=== PATIENT | male | born 1965 | race Caucasian/White ===

== ENCOUNTER 2017-12-09 13:39 | Emergency (ER) | payer SELFPAY ==
[~2017-12-09] VITALS: Ht 182.9 cm; Wt 69.3 kg
[2017-12-09 13:40] VITALS: BP 134/86
[2017-12-09 14:34] LABS: BASOPHILS # (AUTO) 0.05 x10^3/uL (0-0.1); BASOPHILS % (AUTO) 1 % (0-1); EOSINOPHILS # (AUTO) 0.05 x10^3/uL (0-0.4); EOSINOPHILS % (AUTO) 1 % (1-7); LYMPHOCYTES # (AUTO) 1.83 x10^3/uL (1-3.4); LYMPHOCYTES % (AUTO) 19 % (22-44); MD NO; MEAN CORPUSCULAR HEMOGLOBIN 34.2 pg (27.5-34.5); MEAN CORPUSCULAR VOLUME 100.7 fL (81-97); MEAN PLATELET VOLUME 8.1 fL (7.4-10.4); MONOCYTES # (AUTO) 0.69 x10^3/uL (0.2-0.8); MONOCYTES % (AUTO) 7 % (2-9); NEUTROPHILS # (AUTO) 7.04 x10^3/uL (1.8-6.8); NEUTROPHILS % (AUTO) 73 % (42-75); PLATELET COUNT 303 x10^3/uL (130-400); RED BLOOD COUNT 4.72 x10^6/uL (4.38-5.82); RED CELL DISTRIBUTION WIDTH 14.4 % (9.4-14.8)
[2017-12-09 14:43] LABS: ALANINE AMINOTRANSFERASE 25 U/L (12-78); ALBUMIN 3.8 g/dL (3.4-5.0); ANION GAP 4 mmol/L (5-15); CALCIUM 8.7 mg/dL (8.5-10.1); CHLORIDE 111 mmol/L (98-107); CREATININE 0.82 mg/dL (0.7-1.3)
[2017-12-09 14:45] LABS: ALKALINE PHOSPHATASE 73 U/L (45-117); BILIRUBIN,TOTAL 0.3 mg/dL (0.2-1.0)
== END 2017-12-09 15:16 | disposition home or self-care (01) ==
LOC: ED 14:39
DX: K40.91 Unilateral inguinal hernia, without obstruction or gangrene, recurrent (principal)
CPT/HCPCS: 36415; 80053; 83690; 85025; 99284

== ENCOUNTER 2018-06-18 16:11 | Emergency (ER) | payer MEDICAID, OTHER ==
[~2018-06-18] VITALS: Ht 182.9 cm; Wt 63.7 kg
[2018-06-18 16:53] LABS: BASOPHILS # (AUTO) 0.08 x10^3/uL (0-0.1); BASOPHILS % (AUTO) 1 % (0-1); EOSINOPHILS # (AUTO) 0.06 x10^3/uL (0-0.4); EOSINOPHILS % (AUTO) 1 % (1-7); LYMPHOCYTES % (AUTO) 19 % (22-44); MD NO; MEAN CORPUSCULAR HEMOGLOBIN 35.6 pg (27.5-34.5); MEAN CORPUSCULAR HGB CONC 34.4 g/dL (33.2-36.2); MEAN CORPUSCULAR VOLUME 103.3 fL (81-97); MONOCYTES # (AUTO) 0.87 x10^3/uL (0.2-0.8); MONOCYTES % (AUTO) 10 % (2-9); NEUTROPHILS # (AUTO) 6.33 x10^3/uL (1.8-6.8); NEUTROPHILS % (AUTO) 70 % (42-75); PLATELET COUNT 312 x10^3/uL (130-400); RED BLOOD COUNT 4.61 x10^6/uL (4.38-5.82); RED CELL DISTRIBUTION WIDTH 13.3 % (9.4-14.8)
[2018-06-18 17:02] LABS: ALBUMIN 4.1 g/dL (3.4-5.0); ANION GAP 7 mmol/L (5-15); CALCIUM 8.7 mg/dL (8.5-10.1); CHLORIDE 107 mmol/L (98-107)
[2018-06-18 17:08] LABS: ALANINE AMINOTRANSFERASE 38 U/L (12-78); ALKALINE PHOSPHATASE 68 U/L (45-117); BILIRUBIN,TOTAL 1.1 mg/dL (0.2-1.0); TOTAL PROTEIN 7.4 g/dL (6.4-8.2)
[2018-06-18 18:03] VITALS: BP 122/80
== END 2018-06-18 18:20 | disposition home or self-care (01) ==
LOC: ED 18:00
DX: K40.90 Unilateral inguinal hernia, without obstruction or gangrene, not specified as recurrent (principal); R19.7 Diarrhea, unspecified
CPT/HCPCS: 36415; 74021; 80053; 85025; 99285

== ENCOUNTER 2018-10-17 08:02 | Outpatient (CLI) | payer MEDICAID ==
[2018-10-17] MEDS ORDERED: NONE PER PT (08:30)
== END 2018-10-17 23:59 | disposition home or self-care (01) ==
LOC: STAR 08:02
PROVIDERS: ATTEND Surgery
DX: Z02.9 Encounter for administrative examinations, unspecified (principal)

== ENCOUNTER 2018-10-21 10:53 | Day surgery (SDC) | payer MEDICAID ==
[~2018-10-21] VITALS: Ht 182.9 cm; Wt 68.5 kg
[~2018-10-21 10:53] MED LIST: NONE PER PT
[2018-10-21] MEDS ORDERED: LACTATED RINGERS 1,000 ML IV SCH (11:14)
[2018-10-21 11:15] VITALS: BP 132/86
[2018-10-21] MEDS ORDERED: LIDOCAINE-MPF 1%, 2ML INFIL ONE (11:30)
[2018-10-21] MEDS ORDERED: EPINEPHRINE 1 MG/ML, 1ML ONE (12:41)
[2018-10-21] MEDS ORDERED: BUPIVACAINE/PF 0.25% ONE (12:41)
[2018-10-21] MEDS ORDERED: BACITRACIN 50,000 UNIT ONE (12:45)
[2018-10-21] MEDS ORDERED: FENTANYL PF 250 MCG/5ML ONE (13:33)
[2018-10-21] MEDS ORDERED: MIDAZOLAM 1 MG/ML, 2ML ONE (13:33)
[2018-10-21] MEDS ORDERED: PROPOFOL 10 MG/ML, 50ML ONE (14:15)
[2018-10-21] MEDS ORDERED: ONDANSETRON 2MG/ML, 2ML ONE (14:15)
[2018-10-21] MEDS ORDERED: DEXAMETHASONE 4 MG/ML, 1ML ONE (14:15)
[2018-10-21] MEDS ORDERED: KETOROLAC 30 MG/1 ML ONE (14:15)
[2018-10-21] MEDS ORDERED: CEFAZOLIN 1,000 MG ONE (14:15)
[2018-10-21] MEDS ORDERED: SUCCINYLCHOLINE 20 MG/ML, 10ML ONE (14:15)
[2018-10-21] MEDS ORDERED: ROCURONIUM 10 MG/ML,10ML ONE (14:15)
[2018-10-21] MEDS ORDERED: MIDAZOLAM 1 MG/ML, 2ML IV PRN (15:30)
[2018-10-21] MEDS ORDERED: MEPERIDINE/PF 25MG/0.5ML IVPush PRN (15:30)
[2018-10-21] MEDS ORDERED: EPHEDRINE 50 MG/ML, 1ML IVPush PRN (15:30)
[2018-10-21] MEDS ORDERED: PROMETHAZINE 25 MG/ML, 1ML IV PRN (15:30)
[2018-10-21] MEDS ORDERED: EPHEDRINE 50 MG/ML, 1ML IM PRN (15:30)
[2018-10-21] MEDS ORDERED: OXYcodone 5 MG/5 ML ORAL.SOL UDC PO PRN (15:30)
[2018-10-21] MEDS ORDERED: hydrALAzine 20 MG/ML, 1ML IV PRN (15:30)
[2018-10-21] MEDS ORDERED: PROMETHAZINE 25 MG SUPP PR PRN (15:30)
[2018-10-21] MEDS ORDERED: PROMETHAZINE 12.5 MG SUPP PR PRN (15:30)
[2018-10-21] MEDS ORDERED: ONDANSETRON ODT 8 MG PO PRN (15:30)
[2018-10-21] MEDS ORDERED: DIPHENHYDRAMINE 50 MG/ML, 1ML IVPush PRN (15:30)
[2018-10-21] MEDS ORDERED: FENTANYL PF 100 MCG/2ML IV PRN (15:30)
[2018-10-21] MEDS ORDERED: ONDANSETRON 2MG/ML, 2ML IV PRN (15:30)
[2018-10-21] MEDS ORDERED: METOPROLOL 1 MG/ML, 5ML IV PRN (15:30)
[2018-10-21] MEDS ORDERED: ACETAMINOPHEN 325 MG TABLET PO PRN (15:30)
[2018-10-21] MEDS ORDERED: ACETAMINOPHEN 650 MG/20.3 ML UDC ONE (15:55)
[2018-10-21] MEDS ORDERED: MORPHINE SULFATE 4 MG/ML, 1ML ONE (15:56)
[2018-10-21] MEDS ORDERED: OXYcodone 5 MG/5 ML ORAL.SOL UDC ONE (15:56)
[2018-10-21] MEDS: MORPHINE SULFATE 4 MG/ML, 1ML IVPush PRN ×2 (16:01→16:06)
== END 2018-10-21 17:15 | disposition home or self-care (01) ==
LOC: OUT 10:53
PROVIDERS: ATTEND Surgery
DX: K40.90 Unilateral inguinal hernia, without obstruction or gangrene, not specified as recurrent (principal)
CPT/HCPCS: 49505; C1781; J0171; J0330; J0690; J1100; J1885; J2250; J2405; J2704; J3010; J3490; J7120